=== PATIENT | male | born 1990 | race African-American/Black ===

== ENCOUNTER → 2017-03-25 | Outpatient (CLI) | payer OTHER ==
--- NOTE | 2017-03-25 11:17 | RAD ---
2 views of the Chest 03/25/2017 2:00 AM Indication: CHEST PAIN. Comparison: None Findings: There is no focal consolidation or infiltrate identified. There is no effusion or pneumothorax. The cardiomediastinal silhouette and pulmonary vasculature are within normal limits. No osseous abnormality is identified. Impression: No evidence of acute cardiopulmonary process.
== END | disposition home or self-care (01) ==
LOC: RAD 10:02 → MERGE 10:02
PROVIDERS: ATTEND Surgery
DX: R07.9 Chest pain, unspecified (principal); J45.909 Unspecified asthma, uncomplicated
CPT/HCPCS: 71020